=== PATIENT | male | born 1945 | race Caucasian/White ===

== ENCOUNTER 2018-03-09 14:16 | Emergency (ER) | payer OTHER ==
[~2018-03-09] VITALS: Ht 180.3 cm; Wt 117.9 kg
[~2018-03-09 14:16] MED LIST: AMLO5 PO; ASCO500 PO; ASPI81CH PO; ATOR20 PO; CALCA500CH PO; CENTRUM SILVER1 EAC1 PO; CEPH500 PO; CIPR500 PO; CLON.2 PO; Cipro500 MG PO; ENOX30I SC; FURO40 PO; GLIP10 PO; GLIP5 PO; Humalog100 UNIT/1 SC; Humalog100 UNIT/3 SQ; INSULANPEN; INSULANPEN SC; Klor-Con 1010 MEQ PO; LABE100 PO; LEVSOD100 PO; LEVSOD125 PO; LEVSOD50 PO; LOSARTAN POTAS100 MG PO; METF500 PO; METO50 PO; Monodox100 MG PO; ONDA4 PO; OXYC5 PO; PIOG15 PO; POTA10T PO; QUET25 PO; RAME8 PO; SENN187 PO; Tazicef1 G1 IV
[2018-03-09] MEDS ORDERED: Allegra-D 12 H1 EACH PO (14:30)
[2018-03-09] MEDS ORDERED: [UNRECOGNIZED DRUG - OTHER] PO (14:32)
[2018-03-09] MEDS ORDERED: BETA.05TCA TOP (14:33)
[2018-03-09] MEDS ORDERED: AZELASTINE137 MCG/0. (14:33)
[2018-03-09] MEDS ORDERED: BUME2 PO (14:34)
[2018-03-09] MEDS ORDERED: Econazole Nitra15 GM TOP (14:35)
[2018-03-09] MEDS ORDERED: GABA100 PO (14:36)
[2018-03-09] MEDS ORDERED: CINA30 PO (14:37)
[2018-03-09] MEDS ORDERED: NEPHRO-VITE RX1 EACH PO (14:37)
[2018-03-09] MEDS ORDERED: QUET25 PO (14:38)
[2018-03-09] MEDS ORDERED: VITAMIN D31000 UNIT PO (14:39)
[2018-03-09] MEDS ORDERED: TAMS.4ER PO (14:39)
[2018-03-09] MEDS ORDERED: LINZESS290 MCG PO (14:40)
[2018-03-09 15:45] LABS: BASOPHILS ABSOLUTE AUTO 0.03 K/mm3 (0.00-0.23); BASOPHILS PERCENT AUTO 0 % (0-2); EOSINOPHILS ABSOLUTE AUTO 0.31 K/mm3 (0.00-0.68); EOSINOPHILS PERCENT AUTO 4 % (0-6); Hematocrit 37.3 % (37.0-53.0); Hemoglobin 13.2 g/dL (13.5-17.5); IMMATURE GRAN ABSOLUTE AUTO 0.03 K/mm3 (0.00-0.10); IMMATURE GRAN PERCENT AUTO 0 % (0-1); LYMPHOCYTES PERCENT AUTO 21 % (21-46); MONOCYTES ABSOLUTE AUTO 0.59 K/mm3 (0.16-1.47); MONOCYTES PERCENT AUTO 7 % (4-13); Mean Corpuscular HGB 33.2 pg (26.0-34.0); Mean Corpuscular HGB Conc 35.4 g/dL (31.5-36.5); Mean Corpuscular Volume 94 fL (80-100); Mean Platelet Volume 9.5 fL (9.1-12.4); NEUTROPHILS ABSOLUTE AUTO 5.57 K/mm3 (1.96-9.15); NEUTROPHILS PERCENT AUTO 68 % (41-73); Platelet Count 273 K/mm3 (150-400); RDW Coefficient Variation 12.6 % (11.7-14.2); RDW Standard Deviation 43.2 fL (35.1-46.3); Red Blood Cell Count 3.98 M/mm3 (4.30-5.90); White Blood Cell Count 8.23 K/mm3 (4.00-11.30)
[2018-03-09 15:52] LABS: Bilirubin, Total 0.6 mg/dL (0.1-1.0); Bun/Creatinine Ratio 6.9 (12.0-20.0); Calcium, Blood 8.5 mg/dL (8.5-10.1); Creatinine, Blood 6.1 mg/dL (0.60-1.20); Potassium, Blood 3.5 mmol/L (3.5-5.5)
[2018-03-09] MEDS ORDERED: Zofran Odt8 MG SL (17:15)
== END 2018-03-09 17:57 | disposition home or self-care (01) ==
LOC: ER 14:16
PROVIDERS: Emergency Medicine
DX: K29.00 Acute gastritis without bleeding (principal); E11.9 Type 2 diabetes mellitus without complications; I25.2 Old myocardial infarction; E03.9 Hypothyroidism, unspecified; I10 Essential (primary) hypertension; Z88.5 Allergy status to narcotic agent; Z88.8 Allergy status to other drugs, medicaments and biological substances; Z79.899 Other long term (current) drug therapy; Z79.4 Long term (current) use of insulin; Z79.82 Long term (current) use of aspirin
CPT/HCPCS: 36415; 51701; 74022; 80053; 83690; 85025; 93005; 93010; 96374; 99284; J2405

== ENCOUNTER → 2018-03-12 | Outpatient (CLI) | payer OTHER ==
[~2018-03-12] MED LIST changes: +AZELASTINE137 MCG/0.; +Allegra-D 12 H1 EACH PO; +BETA.05TCA TOP; +BUME2 PO; +CINA30 PO; +Econazole Nitra15 GM TOP; +GABA100 PO; +LINZESS290 MCG PO; +NEPHRO-VITE RX1 EACH PO; +TAMS.4ER PO; +VITAMIN D31000 UNIT PO; +Zofran Odt8 MG SL; +[UNRECOGNIZED DRUG - OTHER] PO
[2018-03-12 15:40] LABS: BASOPHILS ABSOLUTE AUTO 0.04 K/mm3 (0.00-0.23); BASOPHILS PERCENT AUTO 0 % (0-2); EOSINOPHILS ABSOLUTE AUTO 0.12 K/mm3 (0.00-0.68); EOSINOPHILS PERCENT AUTO 1 % (0-6); Hematocrit 38.2 % (37.0-53.0); Hemoglobin 13.6 g/dL (13.5-17.5); IMMATURE GRAN ABSOLUTE AUTO 0.06 K/mm3 (0.00-0.10); IMMATURE GRAN PERCENT AUTO 0 % (0-1); LYMPHOCYTES ABSOLUTE AUTO 1.51 K/mm3 (0.84-5.20); LYMPHOCYTES PERCENT AUTO 10 % (21-46); MONOCYTES ABSOLUTE AUTO 1.01 K/mm3 (0.16-1.47); MONOCYTES PERCENT AUTO 7 % (4-13); Mean Corpuscular HGB 33.6 pg (26.0-34.0); Mean Corpuscular HGB Conc 35.6 g/dL (31.5-36.5); Mean Corpuscular Volume 94 fL (80-100); Mean Platelet Volume 9.6 fL (9.1-12.4); NEUTROPHILS ABSOLUTE AUTO 12.58 K/mm3 (1.96-9.15); NEUTROPHILS PERCENT AUTO 82 % (41-73); Platelet Count 258 K/mm3 (150-400); RDW Coefficient Variation 12.9 % (11.7-14.2); RDW Standard Deviation 44.2 fL (35.1-46.3); Red Blood Cell Count 4.05 M/mm3 (4.30-5.90); White Blood Cell Count 15.32 K/mm3 (4.00-11.30)
[2018-03-12 15:53] LABS: Albumin, Blood 4.2 g/dL (3.4-5.0); Bilirubin, Total 0.7 mg/dL (0.1-1.0); Bun/Creatinine Ratio 5.2 (12.0-20.0); Calcium, Blood 9.1 mg/dL (8.5-10.1); Creatinine, Blood 4.65 mg/dL (0.60-1.20); Globulin, Blood 4.2 g/dL (2.2-4.0); Potassium, Blood 4.2 mmol/L (3.5-5.5); Total Protein, Blood 8.4 g/dL (6.4-8.2)
== END | disposition home or self-care (01) ==
LOC: LAB SHORT 15:30 → LAB 15:30
PROVIDERS: Nurse Practitioner
DX: R10.9 Unspecified abdominal pain (principal)
CPT/HCPCS: 80053; 85025

== ENCOUNTER 2020-08-23 11:33 | Observation (INO) | payer OTHER ==
[~2020-08-23] VITALS: Ht 180.3 cm; Wt 111.8 kg
[~2020-08-23 11:33] MED LIST changes: -ASPI81CH PO; -ATOR20 PO; +AURYXIA210 MG PO; -AZELASTINE137 MCG/0.; -BUME2 PO; -CLON.2 PO; -GABA100 PO; -METO50 PO; -NEPHRO-VITE RX1 EACH PO; -SENN187 PO; -TAMS.4ER PO; -VITAMIN D31000 UNIT PO
[2020-08-23 12:18] LABS: BASOPHILS ABSOLUTE AUTO 0.04 K/mm3 (0.00-0.23); BASOPHILS PERCENT AUTO 1 % (0-2); EOSINOPHILS ABSOLUTE AUTO 0.51 K/mm3 (0.00-0.68); EOSINOPHILS PERCENT AUTO 6 % (0-6); Hematocrit 28.9 % (37.0-53.0); Hemoglobin 10.2 g/dL (13.5-17.5); IMMATURE GRAN ABSOLUTE AUTO 0.02 K/mm3 (0.00-0.10); IMMATURE GRAN PERCENT AUTO 0 % (0-1); LYMPHOCYTES ABSOLUTE AUTO 2.25 K/mm3 (0.84-5.20); LYMPHOCYTES PERCENT AUTO 27 % (21-46); MONOCYTES ABSOLUTE AUTO 0.71 K/mm3 (0.16-1.47); MONOCYTES PERCENT AUTO 9 % (4-13); Mean Corpuscular HGB 34.7 pg (26.0-34.0); Mean Corpuscular HGB Conc 35.3 g/dL (31.5-36.5); Mean Corpuscular Volume 98 fL (80-100); Mean Platelet Volume 9.7 fL (9.1-12.4); NEUTROPHILS ABSOLUTE AUTO 4.81 K/mm3 (1.96-9.15); NEUTROPHILS PERCENT AUTO 58 % (41-73); Platelet Count 206 K/mm3 (150-400); RDW Coefficient Variation 13.7 % (11.7-14.2); RDW Standard Deviation 48.8 fL (35.1-46.3); Red Blood Cell Count 2.94 M/mm3 (4.30-5.90); White Blood Cell Count 8.34 K/mm3 (4.00-11.30)
[2020-08-23 12:25] LABS: Calcium, Ionized (POC) 1.22 mmol/L (1.10-1.46); Chloride (POC) 89 mmol/L (98-108); Creatinine (POC) 8.5 mg/dL (0.8-1.3); Glucose (ISTAT POC) 185 mg/dL (70-99); Hemoglobin (POC) 9.9 g/dL (13.5-17.5); Sodium (POC) 132 mmol/L (135-148); Total CO2 (POC) 29 mmol/L (21-32)
[2020-08-23 12:46] LABS: Troponin I <0.015 ng/mL (0.000-0.040)
[2020-08-23 12:55] LABS: Alanine Aminotransfer (ALT/SGP 29 U/L (12-78); Albumin, Blood 3.7 g/dL (3.4-5.0); Albumin/Globulin Ratio 1.1 (0.8-1.8); Alk Phos 58 U/L (50-136); Anion Gap 11 mmol/L (6-16); Aspartate Aminotrans (AST/SGOT 13 U/L (12-37); Bilirubin, Total 0.3 mg/dL (0.1-1.0); Blood Urea Nitrogen 57 mg/dL (8-24); Bun/Creatinine Ratio 7.1 (12.0-20.0); CO2, Blood 30 mmol/L (21-32); Calcium, Blood 9.9 mg/dL (8.5-10.1); Chloride, Blood 90 mmol/L (98-108); Creatinine, Blood 8.04 mg/dL (0.60-1.20); Globulin, Blood 3.3 g/dL (2.2-4.0); Glomerular Filtration Rate 7 (60-); Glucose, Blood 192 mg/dL (70-99); Potassium, Blood 4.1 mmol/L (3.5-5.5); Sodium, Blood 131 mmol/L (136-145)
[2020-08-23] MEDS ORDERED: SENN187 PO (15:11)
[2020-08-23] MEDS ORDERED: CLON.1 PO (15:11)
[2020-08-23] MEDS ORDERED: ASPI81CH PO (15:12)
[2020-08-23] MEDS ORDERED: AZELASTINE137 MCG/03 (15:13)
[2020-08-23] MEDS ORDERED: ATOR20 PO (15:13)
[2020-08-23] MEDS ORDERED: BUME2 PO (15:14)
[2020-08-23] MEDS ORDERED: nephro-vite PO (15:15)
[2020-08-23] MEDS ORDERED: GABA100 PO (15:15)
[2020-08-23] MEDS ORDERED: VITAMIN D31000 UNIT PO (15:16)
[2020-08-23] MEDS ORDERED: TAMS.4ER PO (15:16)
[2020-08-23] MEDS ORDERED: QUET25 PO (15:16)
[2020-08-23] MEDS ORDERED: FINA5 PO (15:17)
[2020-08-23] MEDS ORDERED: GLIP10ER PO (15:18)
[2020-08-23] MEDS ORDERED: VITAMIN C125 MG PO (16:03)
[2020-08-23] MEDS ORDERED: SEVEC800 PO (16:04)
[2020-08-23] MEDS ORDERED: DICLOFENAC SOD100 G1 TOP (16:05)
[2020-08-23] MEDS ORDERED: SITA50T2 PO (16:06)
[2020-08-23] MEDS ORDERED: Fluticasone Pro15 GM TOP (16:07)
[2020-08-23] MEDS ORDERED: EUTHYROX125 MCG PO (16:09)
[2020-08-23] MEDS ORDERED: BASAGLAR K100 UNIT/1 SC ×2 (16:09)
[2020-08-23] MEDS ORDERED: METO50 PO (16:11)
[2020-08-23] MEDS ORDERED: BIOTIN5 MG PO (16:12)
[2020-08-23] MEDS ORDERED: AURYXIA210 MG PO (16:12)
[2020-08-23] MEDS ORDERED: Calcium Acetat667 MG PO (16:13)
[2020-08-23] MEDS ORDERED: ACET500 PO (16:14)
[2020-08-23] MEDS ORDERED: BISA10S PR (16:14)
[2020-08-23] MEDS ORDERED: Calcium Carbon500 MG PO (16:17)
[2020-08-23] MEDS ORDERED: ZOLP5 PO (16:22)
[2020-08-23] MEDS ORDERED: Ondansetron Odt8 MG PO (16:22)
[2020-08-23] MEDS ORDERED: MIRALAX17 GM PO (16:23)
[2020-08-23] MEDS ORDERED: Ketoconazole15 GM TOP (16:24)
[2020-08-23] MEDS ORDERED: CLOBET30L TOP (18:43)
[2020-08-23] MEDS ORDERED: [UNRECOGNIZED DRUG - OTHER] PO (18:45)
--- NOTE | 2020-08-23 18:46 | NUR ---
PT ARRIVED FROM ED AT ABOUT 1730. ORTHOSTATIC BP DONE UPON ARRIVAL, SCD PLACED, AND PT REPORTED NO DIZZINESS DURING TRANSFER. MANUAL PULSE RATE WAS LOW 38 DURING VITAL SIGN ASSESSMENT. DR. LEBLANC CAME TO ROOM AND ORDERED A STAT EKG AND BLADDER SCAN. BOTH COMPLETED AND CALL WAS MADE TO BENJI WITH RESULTS. TELE WAS PLACED AND CONFIRMED WITH PCU ELEMENT WINDING MACHINE TENDER. PT WAS ONE ASSIST TO THE RESTROOM, AND HE DENIED ANY DIZZINESS DURING THIS TIME. PT IS ORIENTED TO ROOM AND CALL LIGHT. BED IS AT LOWEST POSITION WITH CALL LIGHT AND PHONE WITHIN REACH. WILL REPORT TO BUS MECHANIC RN.
--- NOTE | 2020-08-23 19:04 | NUR ---
DR LEBLANC NOTIFIED OF EKG RESULT AND BLADDER SCAN OF 497 BUT PT WAS ABLE TO VOID 250ML AFTER. PER DR LEBLANC CONSULT CARDIOLOGY, CALL ANSWERING SERVICE TONIGHT BUT OK FOR TOMORROW AM CONSULT. ECHO TOMORROW WELL TSH.
[2020-08-24 01:31] LABS: Hemoglobin 9.3 g/dL (13.5-17.5); Mean Corpuscular HGB 34.1 pg (26.0-34.0); Mean Corpuscular HGB Conc 34.4 g/dL (31.5-36.5); Mean Corpuscular Volume 99 fL (80-100); Mean Platelet Volume 9.8 fL (9.1-12.4); Platelet Count 197 K/mm3 (150-400); RDW Coefficient Variation 13.7 % (11.7-14.2); RDW Standard Deviation 49.4 fL (35.1-46.3); Red Blood Cell Count 2.73 M/mm3 (4.30-5.90); White Blood Cell Count 9.17 K/mm3 (4.00-11.30)
[2020-08-24 01:45] LABS: Magnesium, Blood 2.4 mg/dL (1.6-2.4); Troponin I 0.018 ng/mL (0.000-0.040)
[2020-08-24 02:43] LABS: Albumin, Blood 3.4 g/dL (3.4-5.0); Anion Gap 9 mmol/L (6-16); Blood Urea Nitrogen 61 mg/dL (8-24); Bun/Creatinine Ratio 7.2 (12.0-20.0); CO2, Blood 29 mmol/L (21-32); Calcium, Blood 9.6 mg/dL (8.5-10.1); Chloride, Blood 93 mmol/L (98-108); Creatinine, Blood 8.42 mg/dL (0.60-1.20); Glomerular Filtration Rate 7 (60-); Glucose, Blood 183 mg/dL (70-99); Phosphorus, Blood 5.9 mg/dL (2.5-4.9); Potassium, Blood 3.8 mmol/L (3.5-5.5); Sodium, Blood 131 mmol/L (136-145)
--- NOTE | 2020-08-24 03:45 | NUR ---
OFFICE NURSE PRACTITIONER SUMMARY Slept most of night. Increasingly confused first few hours of the shift, then fell asleep after HS meds including Seroquel. Impulsive OOB during period of confusion, then called appropriately in middle of night. Very unsteady on feet. Left arm fistula with strong bruit and thrill. Tele SB-SR 50's and 60's with first degree AV block and frequent PVC's. Creat 8.42 this AM. (8.5 yesterday) Anticipate dialysis today
--- NOTE | 2020-08-24 09:04 | NUR ---
PT TO DIALYSIS ROOM @ 0918 VIA W/C BY [facility].
--- NOTE | 2020-08-24 12:36 | NUR ---
PT RETURNED FROM DIALYSIS AT APPROX 1215. PT IS NOW SITTING IN CHAIR EATING LUNCH. CHAIR ALARM IS SET AND CALL LIGHT WITHIN REACH.
--- NOTE | 2020-08-24 14:03 | NUR ---
SPOKE WITH BASIM AT [facility], PT OK TO DISCHARGE BACK. F/U APPT MADE WITH DR WILSON WELL DR MANZO. PT TO DISCHARGE WITH HOME HEALTH. SCRIPT FOR WALKER SENT. ALL ORDERS FAXED TO [facility] AND RIDE WILL BE SCHEDULE PER THERE REQUEST. PT DID GET DIALYSIS TODAY. ZIO MONITOR PLACED PRIOR TO DISCHARGE AND INSTRUCTIONS GIVEN TO PT AND [facility]. PER DR DODGE SHE SPOKE WITH DR WILSON AND HE WILL PLAN OUTPATIENT LEXISCAN. SPOKE WITH FAMILY MEMBER KIM AND NOTIFIED OF PLAN FOR DISCHARGE BACK TO [facility]. AWAITING ON RIDE AT THIS TIME.
--- NOTE | 2020-08-24 15:50 | NUR ---
PT DISCHARGED BACK TO [facility] AT 1540 VIA [facility] W/C TRANSPORT.
== END 2020-08-24 15:47 | disposition home or self-care (01) ==
LOC: ER 11:33 → MEDS 11:34 → ENPENDDIS 08-24 12:27 → MEDS 08-24 15:47
PROVIDERS: Emergency Medicine; Nurse Practitioner Acute Care; ADMIT Internal Medicine
DX: I49.3 Ventricular premature depolarization (principal); I25.10 Atherosclerotic heart disease of native coronary artery without angina pectoris; E03.9 Hypothyroidism, unspecified; R55 Syncope and collapse; I13.2 Hypertensive heart and chronic kidney disease with heart failure and with stage 5 chronic kidney disease, or end stage renal disease; E11.42 Type 2 diabetes mellitus with diabetic polyneuropathy; N18.6 End stage renal disease; D63.1 Anemia in chronic kidney disease; N40.0 Benign prostatic hyperplasia without lower urinary tract symptoms; E78.5 Hyperlipidemia, unspecified; Z99.2 Dependence on renal dialysis; Z95.1 Presence of aortocoronary bypass graft; I50.32 Chronic diastolic (congestive) heart failure; Z79.82 Long term (current) use of aspirin; Z79.899 Other long term (current) drug therapy; Z88.8 Allergy status to other drugs, medicaments and biological substances; Z86.73 Personal history of transient ischemic attack (TIA), and cerebral infarction without residual deficits; Z91.041 Radiographic dye allergy status; Z79.84 Long term (current) use of oral hypoglycemic drugs
CPT/HCPCS: 36415; 70450; 71045; 80047; 80053; 80069; 82947; 83735; 84100; 84443; 84484; 85014; 85025; 85027; 93005; 93010; 93306; 96372; 99285-25; A9270-GY; G0257; G0378; J1644

== ENCOUNTER 2021-01-19 16:30 | Emergency (ER) | payer OTHER ==
[~2021-01-19] VITALS: Ht 185.4 cm; Wt 95.2 kg
[~2021-01-19 16:30] MED LIST changes: +ACET500 PO; +ASPI81CH PO; +ATOR20 PO; +AZELASTINE137 MCG/03; +BASAGLAR K100 UNIT/1 SC; +BIOTIN5 MG PO; +BISA10S PR; +BUME2 PO; +CLOBET30L TOP; +CLON.1 PO; +Calcium Acetat667 MG PO; +Calcium Carbon500 MG PO; +DICLOFENAC SOD100 G1 TOP; +EUTHYROX125 MCG PO; +FINA5 PO; +Fluticasone Pro15 GM TOP; +GABA100 PO; +GLIP10ER PO; +Ketoconazole15 GM TOP; +METO50 PO; +MIRALAX17 GM PO; +Ondansetron Odt8 MG PO; +SENN187 PO; +SEVEC800 PO; +SITA50T2 PO; +TAMS.4ER PO; +VITAMIN C125 MG PO; +VITAMIN D31000 UNIT PO; +ZOLP5 PO; +[UNRECOGNIZED DRUG - OTHER] PO; +nephro-vite PO
[2021-01-19 17:21] LABS: BASOPHILS ABSOLUTE AUTO 0.04 K/mm3 (0.00-0.23); BASOPHILS PERCENT AUTO 1 % (0-2); EOSINOPHILS PERCENT AUTO 2 % (0-6); Hematocrit 33.4 % (37.0-53.0); Hemoglobin 11.5 g/dL (13.5-17.5); IMMATURE GRAN ABSOLUTE AUTO 0.05 K/mm3 (0.00-0.10); IMMATURE GRAN PERCENT AUTO 1 % (0-1); LYMPHOCYTES PERCENT AUTO 11 % (21-46); MONOCYTES ABSOLUTE AUTO 1.09 K/mm3 (0.16-1.47); MONOCYTES PERCENT AUTO 13 % (4-13); Mean Corpuscular HGB 33.3 pg (26.0-34.0); Mean Corpuscular HGB Conc 34.4 g/dL (31.5-36.5); Mean Corpuscular Volume 97 fL (80-100); Mean Platelet Volume 8.9 fL (9.1-12.4); NEUTROPHILS PERCENT AUTO 72 % (41-73); Platelet Count 239 K/mm3 (150-400); RDW Coefficient Variation 13.5 % (11.7-14.2); RDW Standard Deviation 48.6 fL (35.1-46.3); Red Blood Cell Count 3.45 M/mm3 (4.30-5.90); White Blood Cell Count 8.28 K/mm3 (4.00-11.30)
[2021-01-19 17:45] LABS: Albumin/Globulin Ratio 1.1 (0.8-1.8); Bilirubin, Total 0.5 mg/dL (0.1-1.0); Bun/Creatinine Ratio 5.6 (12.0-20.0); Calcium, Blood 9.5 mg/dL (8.5-10.1); Creatinine, Blood 3.24 mg/dL (0.60-1.20); Globulin, Blood 3.8 g/dL (2.2-4.0); Potassium, Blood 3.9 mmol/L (3.5-5.5); Total Protein, Blood 7.8 g/dL (6.4-8.2); Troponin I 0.016 ng/mL (0.000-0.040)
== END 2021-01-19 19:28 | disposition home or self-care (01) ==
LOC: ER 16:30
PROVIDERS: Physician Assistant
DX: T80.89XA Other complications following infusion, transfusion and therapeutic injection, initial encounter (principal); R53.1 Weakness; I13.2 Hypertensive heart and chronic kidney disease with heart failure and with stage 5 chronic kidney disease, or end stage renal disease; E11.22 Type 2 diabetes mellitus with diabetic chronic kidney disease; N18.6 End stage renal disease; I50.9 Heart failure, unspecified; N18.4 Chronic kidney disease, stage 4 (severe); E03.9 Hypothyroidism, unspecified; I25.2 Old myocardial infarction; Z99.2 Dependence on renal dialysis; Z79.899 Other long term (current) drug therapy; Z79.4 Long term (current) use of insulin; Z79.82 Long term (current) use of aspirin; Z59.1 Inadequate housing
CPT/HCPCS: 36415; 70450; 71045; 80053; 84484; 85025; 93005; 93010; 99285-25

== ENCOUNTER 2021-06-02 19:40 | Emergency (ER) | payer OTHER ==
[~2021-06-02] VITALS: Ht 175.3 cm; Wt 113.4 kg
[2021-06-02 20:12] LABS: Source, Urine Clean Catch
[2021-06-02 20:14] LABS: BASOPHILS ABSOLUTE AUTO 0.04 K/mm3 (0.00-0.23); BASOPHILS PERCENT AUTO 1 % (0-2); EOSINOPHILS ABSOLUTE AUTO 0.27 K/mm3 (0.00-0.68); EOSINOPHILS PERCENT AUTO 4 % (0-6); Hematocrit 29.1 % (37.0-53.0); Hemoglobin 9.8 g/dL (13.5-17.5); IMMATURE GRAN ABSOLUTE AUTO 0.01 K/mm3 (0.00-0.10); IMMATURE GRAN PERCENT AUTO 0 % (0-1); LYMPHOCYTES ABSOLUTE AUTO 2.03 K/mm3 (0.84-5.20); LYMPHOCYTES PERCENT AUTO 31 % (21-46); MONOCYTES ABSOLUTE AUTO 0.74 K/mm3 (0.16-1.47); MONOCYTES PERCENT AUTO 11 % (4-13); Mean Corpuscular HGB 32.6 pg (26.0-34.0); Mean Corpuscular HGB Conc 33.7 g/dL (31.5-36.5); Mean Corpuscular Volume 97 fL (80-100); NEUTROPHILS ABSOLUTE AUTO 3.57 K/mm3 (1.96-9.15); NEUTROPHILS PERCENT AUTO 54 % (41-73); Platelet Count 206 K/mm3 (150-400); RDW Coefficient Variation 14.2 % (11.7-14.2); RDW Standard Deviation 49.8 fL (35.1-46.3); Red Blood Cell Count 3.01 M/mm3 (4.30-5.90); White Blood Cell Count 6.66 K/mm3 (4.00-11.30)
[2021-06-02 20:17] LABS: Appearance, Urine Clear (Clear); Bilirubin, Urine Neg (Neg); Blood, Urine Neg (Neg); Color, Urine Yellow (P-Yellow); Glucose Qualitative, Urine 3+ (Neg); Ketones, Urine Neg (Neg); Leukocyte Esterase, Urine Neg (Neg); Nitrite, Urine Neg (Neg); Protein, Urine 4+ (Neg); Urobilinogen, Urine NORM (Normal)
[2021-06-02 20:25] LABS: Bacteria Few /hpf; Red Blood Cells, Urine 0-2 /hpf (0-2); Squamous Epithelial Cells Not Seen /hpf (Few); White Blood Cells, Urine 0-2 /hpf (0-5)
[2021-06-02 20:33] LABS: Albumin, Blood 3.5 g/dL (3.4-5.0); Bilirubin, Total 0.5 mg/dL (0.1-1.0); Bun/Creatinine Ratio 4.7 (12.0-20.0); Calcium, Blood 9.4 mg/dL (8.5-10.1); Creatinine, Blood 4.65 mg/dL (0.60-1.20); Globulin, Blood 3.4 g/dL (2.2-4.0); Total Protein, Blood 6.9 g/dL (6.4-8.2)
== END 2021-06-03 00:53 | disposition home or self-care (01) ==
LOC: ER 19:40
PROVIDERS: Emergency Medicine
DX: Z00.00 Encounter for general adult medical examination without abnormal findings (principal); I13.0 Hypertensive heart and chronic kidney disease with heart failure and stage 1 through stage 4 chronic kidney disease, or unspecified chronic kidney disease; I50.9 Heart failure, unspecified; E11.22 Type 2 diabetes mellitus with diabetic chronic kidney disease; N18.4 Chronic kidney disease, stage 4 (severe); E03.9 Hypothyroidism, unspecified; E78.5 Hyperlipidemia, unspecified; Z91.041 Radiographic dye allergy status; Z88.8 Allergy status to other drugs, medicaments and biological substances; Z79.899 Other long term (current) drug therapy; Z79.4 Long term (current) use of insulin
CPT/HCPCS: 70450; 80053; 81001; 84484; 85025; 93005; 93010; 99285-25

== ENCOUNTER 2021-10-06 15:14 | Emergency (ER) | payer OTHER ==
[~2021-10-06] VITALS: Ht 182.9 cm; Wt 115.7 kg
[2021-10-06 16:13] LABS: BASOPHILS ABSOLUTE AUTO 0.06 K/mm3 (0.00-0.23); BASOPHILS PERCENT AUTO 1 % (0-2); EOSINOPHILS ABSOLUTE AUTO 0.56 K/mm3 (0.00-0.68); EOSINOPHILS PERCENT AUTO 6 % (0-6); Hematocrit 30.6 % (37.0-53.0); Hemoglobin 10.3 g/dL (13.5-17.5); IMMATURE GRAN ABSOLUTE AUTO 0.04 K/mm3 (0.00-0.10); IMMATURE GRAN PERCENT AUTO 0 % (0-1); LYMPHOCYTES ABSOLUTE AUTO 1.71 K/mm3 (0.84-5.20); LYMPHOCYTES PERCENT AUTO 18 % (21-46); MONOCYTES ABSOLUTE AUTO 1.03 K/mm3 (0.16-1.47); MONOCYTES PERCENT AUTO 11 % (4-13); Mean Corpuscular HGB 31.6 pg (26.0-34.0); Mean Corpuscular HGB Conc 33.7 g/dL (31.5-36.5); Mean Corpuscular Volume 94 fL (80-100); NEUTROPHILS ABSOLUTE AUTO 6.09 K/mm3 (1.96-9.15); NEUTROPHILS PERCENT AUTO 64 % (41-73); Platelet Count 258 K/mm3 (150-400); RDW Coefficient Variation 14.6 % (11.7-14.2); RDW Standard Deviation 50.9 fL (35.1-46.3); Red Blood Cell Count 3.26 M/mm3 (4.30-5.90); White Blood Cell Count 9.49 K/mm3 (4.00-11.30)
[2021-10-06 16:33] LABS: Alanine Aminotransfer (ALT/SGP 20 U/L (12-78); Albumin, Blood 3.2 g/dL (3.4-5.0); Albumin/Globulin Ratio 0.8 (0.8-1.8); Alk Phos 80 U/L (50-136); Anion Gap 6 mmol/L (6-16); Aspartate Aminotrans (AST/SGOT 15 U/L (12-37); Bilirubin, Total 0.5 mg/dL (0.1-1.0); Blood Urea Nitrogen 20 mg/dL (8-24); Bun/Creatinine Ratio 3.8 (12.0-20.0); CO2, Blood 32 mmol/L (21-32); Chloride, Blood 96 mmol/L (98-108); Creatinine, Blood 5.21 mg/dL (0.60-1.20); Globulin, Blood 3.8 g/dL (2.2-4.0); Glomerular Filtration Rate 11 (60-); Glucose, Blood 111 mg/dL (70-99); Potassium, Blood 3.9 mmol/L (3.5-5.5); Sodium, Blood 134 mmol/L (136-145); Troponin I <0.015 ng/mL (0.000-0.040)
[2021-10-06] MEDS ORDERED: METO5A PO (17:49)
[2021-10-06] MEDS ORDERED: BASAGLAR K100 UNIT/3 (17:52)
[2021-10-06 19:24] LABS: Source, Urine Clean Catch
[2021-10-06 19:27] LABS: Thyroid Stimulating Hormone 1.91 uIU/mL (0.360-4.800)
[2021-10-06 19:28] LABS: Appearance, Urine Clear (Clear); Bilirubin, Urine Neg (Neg); Blood, Urine Neg (Neg); Color, Urine Yellow (P-Yellow); Glucose Qualitative, Urine 1+ (Neg); Ketones, Urine Neg (Neg); Leukocyte Esterase, Urine Neg (Neg); Nitrite, Urine Neg (Neg); Protein, Urine 4+ (Neg); Urobilinogen, Urine NORM (Normal)
[2021-10-06 19:37] LABS: Red Blood Cells, Urine 0-2 /hpf (0-2); Squamous Epithelial Cells Rare /hpf (Few); White Blood Cells, Urine 0-2 /hpf (0-5)
[2021-10-06 19:38] LABS: Bacteria Rare /hpf
== END 2021-10-06 20:38 | disposition home or self-care (01) ==
LOC: ER 15:14
PROVIDERS: Emergency Medicine; Physician Assistant
DX: R41.0 Disorientation, unspecified (principal); E11.22 Type 2 diabetes mellitus with diabetic chronic kidney disease; I13.0 Hypertensive heart and chronic kidney disease with heart failure and stage 1 through stage 4 chronic kidney disease, or unspecified chronic kidney disease; I50.9 Heart failure, unspecified; N18.4 Chronic kidney disease, stage 4 (severe); E03.9 Hypothyroidism, unspecified; M19.90 Unspecified osteoarthritis, unspecified site; Z86.73 Personal history of transient ischemic attack (TIA), and cerebral infarction without residual deficits; Z88.8 Allergy status to other drugs, medicaments and biological substances; Z99.2 Dependence on renal dialysis; Z79.899 Other long term (current) drug therapy; Z79.82 Long term (current) use of aspirin
CPT/HCPCS: 70450; 80053; 81001; 82140; 82607; 82746; 84443; 84484; 85025; 93005; 93010; 99285-25

== ENCOUNTER 2021-11-02 10:56 | Emergency (ER) | payer OTHER ==
[~2021-11-02] VITALS: Ht 182.9 cm; Wt 113.4 kg
[~2021-11-02 10:56] MED LIST changes: +BASAGLAR K100 UNIT/3; +METO5A PO
[2021-11-02 11:41] LABS: BASOPHILS ABSOLUTE AUTO 0.04 K/mm3 (0.00-0.23); BASOPHILS PERCENT AUTO 1 % (0-2); EOSINOPHILS ABSOLUTE AUTO 0.29 K/mm3 (0.00-0.68); EOSINOPHILS PERCENT AUTO 5 % (0-6); Hematocrit 30.6 % (37.0-53.0); IMMATURE GRAN ABSOLUTE AUTO 0.01 K/mm3 (0.00-0.10); IMMATURE GRAN PERCENT AUTO 0 % (0-1); LYMPHOCYTES ABSOLUTE AUTO 1.78 K/mm3 (0.84-5.20); LYMPHOCYTES PERCENT AUTO 28 % (21-46); MONOCYTES ABSOLUTE AUTO 0.73 K/mm3 (0.16-1.47); MONOCYTES PERCENT AUTO 11 % (4-13); Mean Corpuscular HGB 31.4 pg (26.0-34.0); Mean Corpuscular HGB Conc 32.7 g/dL (31.5-36.5); Mean Corpuscular Volume 96 fL (80-100); Mean Platelet Volume 9.6 fL (9.1-12.4); NEUTROPHILS ABSOLUTE AUTO 3.61 K/mm3 (1.96-9.15); NEUTROPHILS PERCENT AUTO 56 % (41-73); Platelet Count 165 K/mm3 (150-400); RDW Coefficient Variation 16.1 % (11.7-14.2); RDW Standard Deviation 56.7 fL (35.1-46.3); Red Blood Cell Count 3.18 M/mm3 (4.30-5.90); White Blood Cell Count 6.46 K/mm3 (4.00-11.30)
[2021-11-02 12:05] LABS: Albumin, Blood 3.1 g/dL (3.4-5.0); Albumin/Globulin Ratio 0.9 (0.8-1.8); Bilirubin, Total 0.7 mg/dL (0.1-1.0); Bun/Creatinine Ratio 4.4 (12.0-20.0); Calcium, Blood 9.8 mg/dL (8.5-10.1); Creatinine, Blood 6.38 mg/dL (0.60-1.20); Globulin, Blood 3.6 g/dL (2.2-4.0); Potassium, Blood 4.6 mmol/L (3.5-5.5); Total Protein, Blood 6.7 g/dL (6.4-8.2)
== END 2021-11-02 16:18 | disposition home or self-care (01) ==
LOC: ER 10:56
PROVIDERS: Emergency Medicine
DX: R41.82 Altered mental status, unspecified (principal); E11.9 Type 2 diabetes mellitus without complications; I10 Essential (primary) hypertension; I25.2 Old myocardial infarction; Z99.2 Dependence on renal dialysis
CPT/HCPCS: 36415; 71045; 80053; 85025; 93005; 93010; 99284-25